=== PATIENT | female | born 1965 | race Caucasian/White ===

== ENCOUNTER 2016-11-27 11:15 | Day surgery (SDC) | payer BC ==
[~2016-11-27 11:15] MED LIST: AMB10 PO; AMBIEN CR12.5 MG PO; ATEN25 PO; AVINZA PO; FORTAMET500 MG PO; GLUCPH PO; KADIANSR30 PO; KEPPRA1000 MG PO; LIOR10 PO; METHOC750B PO; MOVANTIK25 MG PO; PERCOCET1 TA4 PO; PR25 PO; ROXICODONE15 MG PO; TRAZ100 PO; ZANAFLEX2 MG PO; ZOFRAN4 PO; [UNRECOGNIZED DRUG - OTHER]; [UNRECOGNIZED DRUG - OTHER] PO
[2016-11-27 12:07] LABS: HEMATOCRIT 38.4 % (36.0-48.0); HEMOGLOBIN 12.8 g/dL (12.0-16.0)
[2016-11-27 12:16] LABS: BUN (BLOOD UREA NITROGEN) 5 MG/DL (6-23); CALCIUM, SERUM 8.7 MG/DL (8.5-10.4); CHLORIDE, SERUM 107 MMOL/L (96-112); CO2 (CARBON DIOXIDE) 28 MMOL/L (24-34); CREATININE 0.71 MG/DL (0.55-1.02); GFR AFRICAN AMERICAN 114 ML/MIN (>=60); GFR NON AFRICAN AMERICAN 98 ML/MIN (>=60); GLUCOSE, SERUM 91 MG/DL (60-99); POTASSIUM, SERUM 4.1 MMOL/L (3.5-5.3); SODIUM, SERUM 143 MMOL/L (135-148)
== END 2016-11-27 18:35 | disposition home or self-care (01) ==
LOC: IMGHOLD 11:15 → RADHOLD 11:28 → SDC/OF 13:05
PROVIDERS: Anesthesiology
PROC: 3E0U3BZ Introduction of Anesthetic Agent into Joints, Percutaneous Approach (ICD-10-PCS; principal; 2016-11-27)
PROC: 3E0U3KZ Introduction of Other Diagnostic Substance into Joints, Percutaneous Approach (ICD-10-PCS; 2016-11-27)
PROC: BP39YZZ Magnetic Resonance Imaging (MRI) of Left Shoulder using Other Contrast (ICD-10-PCS; 2016-11-27)
DX: M19.012 Primary osteoarthritis, left shoulder (principal); M25.512 Pain in left shoulder; M25.511 Pain in right shoulder; G40.909 Epilepsy, unspecified, not intractable, without status epilepticus; H43.393 Other vitreous opacities, bilateral; F41.9 Anxiety disorder, unspecified; F40.240 Claustrophobia; R00.0 Tachycardia, unspecified; E66.9 Obesity, unspecified; Z68.30 Body mass index [BMI] 30.0-30.9, adult; Z88.0 Allergy status to penicillin; Z99.3 Dependence on wheelchair; Z88.6 Allergy status to analgesic agent; Z88.8 Allergy status to other drugs, medicaments and biological substances; Z79.891 Long term (current) use of opiate analgesic; Z79.899 Other long term (current) drug therapy; Z87.891 Personal history of nicotine dependence; Z98.890 Other specified postprocedural states; Z98.84 Bariatric surgery status; Z90.49 Acquired absence of other specified parts of digestive tract; Z90.710 Acquired absence of both cervix and uterus
CPT/HCPCS: 23350-LT; 73222-LT; 77002; 80048; 85014; 85018; A9270-GY; J2250; J3010; Q9967